=== PATIENT | male | born 1940 | race African-American/Black ===

== ENCOUNTER 2019-06-17 15:24 | Emergency (ER) | payer OTHER, MEDICAID ==
[~2019-06-17] VITALS: Ht 175.3 cm; Wt 64.5 kg
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
[2019-06-17 17:35] VITALS: BP 174/85
== END 2019-06-17 18:05 | disposition home or self-care (01) ==
LOC: ER 15:24
DX: R41.82 Altered mental status, unspecified (principal)
CPT/HCPCS: 82962; 99283